=== PATIENT | male | born 1975 | race Caucasian/White ===

== ENCOUNTER 2022-06-05 14:25 | Outpatient (REF) | payer BC, SELFPAY ==
[2022-06-05 15:17] LABS: HCT 43.7 % (40.0-50.0); HGB 14.9 g/dL (13.5-17.5); MCH 29.3 pg (27.0-33.0); MCHC 34.1 % (32.0-36.0); MCV 86 fL (80-95); MPV 9.3 fL (8.0-11.0); Platelet Count 314 10^3/uL (130-400); RBC 5.08 10^6/uL (4.36-5.78); RDW 13.8 % (11.8-14.1); RDW-SD 43.3 fL; WBC 8.63 10^3/uL (4.4-10.8)
[2022-06-05 15:49] LABS: Anion Gap 9.5 mmol/L (3-11); BUN 15 mg/dL (7-18); CO2 25.5 mmol/L (21.0-32.0); CREATININE 0.8 mg/dL (0.70-1.30); Calcium 9.4 mg/dL (8.5-10.1); Calculated LDL 123 mg/dL (<100); Chloride 105 mmol/L (98-107); Cholesterol 209 mg/dL (<200); Estimated GFR 110.53 (mL/min/1.73m2); Glucose 103 mg/dL (74-106); HDL Cholesterol 54 mg/dL (40-60); Potassium 4.4 mmol/L (3.5-5.1); Sodium 140 mmol/L (136-145); Triglyceride 161 mg/dL (<150)
== END 2022-06-05 14:26 | disposition home or self-care (01) ==
LOC: NCHCN 14:25
PROVIDERS: PCP Family Medicine; Visit Provider Family Medicine
DX: E78.5 Hyperlipidemia, unspecified (principal); I25.10 Atherosclerotic heart disease of native coronary artery without angina pectoris; I10 Essential (primary) hypertension
CPT/HCPCS: 80048; 80061; 85027

== ENCOUNTER 2022-12-06 12:53 | Outpatient (REF) | payer BC, SELFPAY ==
[2022-12-06 17:48] LABS: Calculated LDL 59 mg/dL (<100); Cholesterol 154 mg/dL (<200); HDL Cholesterol 61 mg/dL (40-60); Triglyceride 174 mg/dL (<150)
== END 2022-12-06 12:54 | disposition home or self-care (01) ==
LOC: NCHCN 12:53
PROVIDERS: PCP Family Medicine; Visit Provider Family Medicine
DX: E78.5 Hyperlipidemia, unspecified (principal)
CPT/HCPCS: 80061

== ENCOUNTER 2023-06-15 16:21 | Outpatient (REF) | payer BC, SELFPAY ==
[2023-06-15 21:52] LABS: ALT 37 U/L (16-63); AST 25 U/L (15-37); Albumin 4.1 g/dL (3.4-5.0); Alkaline Phosphatase 68 U/L (46-116); Anion Gap 9.5 mmol/L (3-11); BUN 9 mg/dL (7-18); Bilirubin, Total 0.5 mg/dL (0.2-1.0); CO2 26.5 mmol/L (21.0-32.0); CREATININE 0.9 mg/dL (0.70-1.30); Calcium 9.5 mg/dL (8.5-10.1); Chloride 101 mmol/L (98-107); Estimated GFR 106.01 (mL/min/1.73m2); Glucose 92 mg/dL (74-106); Potassium 4.2 mmol/L (3.5-5.1); Sodium 137 mmol/L (136-145); Total Protein 7.1 g/dL (6.4-8.2)
== END 2023-06-15 16:22 | disposition home or self-care (01) ==
LOC: NCHCN 16:21
PROVIDERS: PCP Family Medicine; Referring Provider Family Medicine; Visit Provider Family Medicine
DX: E78.5 Hyperlipidemia, unspecified (principal)
CPT/HCPCS: 80053

== ENCOUNTER 2025-02-11 10:19 | Emergency (ER) | payer BC, SELFPAY ==
--- NOTE | 2025-02-11 10:15 | RT.EKG_ITS ---
APPROVED REPORT Exam: Resting ECG Reason for Exam: chest pain Patient Location: E HR:113 bpm ECG Measurements Heart Rate 113 AXIS IN 161 P 36 QRSd 79 QRS 58 QT 319 T 22 QTc 439 Conclusion Sinus tachycardia...rate> [address] elevation, inferior leads...ST >0.06mV, II III aVF No Occlusion CO
--- NOTE | 2025-02-11 10:30 | DI.RAD_ITS ---
Exam(s) XR CHEST 2V PA LATERAL EXAM: XR CHEST 2V PA LATERAL CLINICAL HISTORY: Chest pain. TECHNIQUE: 2D digital imaging was performed. COMPARISON: No exams were available for comparison FINDINGS: 2 views: Heart size is normal. The mediastinum is not widened. Mild increased markings are noted in the lower left lung field. There is also a 1 cm density behind the right-side of the heart possibly right lower lobe nodule. There are no pleural effusions. IMPRESSION: As above. Recommend follow-up CT scan. DATA REPOSITORY: RADIATION DOSE DELIVERED:
[2025-02-11 10:31] VITALS: BP 129/93; PULSE 120; RESP 22; TEMP 36.7; O2SAT 96
--- NOTE | 2025-02-11 11:05 | W.ED.GENAD ---
Discharge Plan Disposition Patient Disposition: Home Condition: Good Discharge Details Clinical Impression: Chest pain, Neck muscle strain Primary Care Provider: Hansa Mahoney ED Provider: Adilene Ku Home Meds and New Rx's Prescriptions: Continued rosuvastatin 40 mg tablet 40 mg PO DAILY nitroglycerin [Nitrostat] 0.4 mg tablet, sublingual 0.4 mg sublingual Q5M PRN Rx Instructions: do not exceed 3 doses per episode metoprolol succinate 25 mg tablet extended release 24 hr 25 mg PO DAILY ezetimibe 10 mg tablet 10 mg PO DAILY aspirin 81 mg tablet,delayed release (DR/EC) 81 mg PO DAILY varenicline tartrate 0.5 mg tablet 0.5 mg PO DIRECTED Rx Instructions: take 1 tablet by mouth daily on days 1-3; then 1 tablet twice daily (morning and evening) on days 4-7 isosorbide mononitrate 30 mg tablet extended release 24 hr 15 mg PO DAILY lisinopril 5 mg tablet 5 mg PO DAILY Discharge Instructions Instructions: Chest Pain (DC) Additional Instructions: As we discussed, your labs and imaging are very reassuring here today. No evidence that you are having a heart attack today. While you are medical history is concerning for a cardiac issue, the description of your symptoms and when things seem to get worse is actually quite reassuring and is more likely to be muscular pain. Alternatively, you may be developing a cold or something that causes some bodyaches so please continue to monitor for symptoms. You may continue with Tylenol and ibuprofen as needed for discomfort. Please continue with your other medications as previously prescribed. Please follow-up with your primary care provider in 1 to 2 weeks for reevaluation. You may discuss with them the need for outpatient stress test if needed. Referrals: Hansa Mahoney MD [Primary Care Provider, Medicine] [facility] Date/Time Provider Initiated Documentation: 02/11/25 10:42. Limitations to Documentation: no limitations. Information obtained by: patient, family, RN/MD (contacted by PCP prior to arrival) and RN notes reviewed. History of Present Illness 50 year old M presents to the emergency department with the chief complaint of chest pain, described as mild, Quality is described as aching, and is localized to the chest. Patient started experiencing this hour(s) and it has been constant. Movement improves symptom(s), Immoblization worsens symptoms . Patient notes no other symptoms.. Patient did receive the following treatments prior to arrival, none Related Data Home Medications Medication Instructions Recorded Confirmed aspirin 81 mg tablet,delayed 81 mg PO DAILY 08/11/22 release ezetimibe 10 mg tablet 10 mg PO DAILY 08/11/22 isosorbide mononitrate 30 mg 15 mg PO DAILY 08/11/22 tablet,extended release 24 hr lisinopril 5 mg tablet 5 mg PO DAILY 08/11/22 metoprolol succinate 25 mg 25 mg PO DAILY 08/11/22 tablet,extended release 24 hr nitroglycerin 0.4 mg sublingual 0.4 mg sublingual Q5M PRN 08/11/22 tablet (Nitrostat) rosuvastatin 40 mg tablet 40 mg PO DAILY 08/11/22 varenicline tartrate 0.5 mg tablet 0.5 mg PO DIRECTED 08/11/22 Allergies Allergy/AdvReac Type Severity Reaction Status Date / Time No Known Allergies Allergy Verified 08/11/22 13:51 General Stated Complaint: Chest Pain CAMERON: 3 Review of Systems Constitutional Constitutional: Reports as per HPI, Denies chills, Denies fever(s), Denies lethargy and Denies poor appetite Eyes Eyes: Denies change in vision Cardiovascular Cardiovascular: Reports as per HPI, Denies dyspnea and Denies dyspnea on exertion Respiratory Respiratory: Reports as per HPI, Denies chest congestion, Denies cough, Denies pain on inspiration, Denies pain with cough, Denies dyspnea and Denies dyspnea on exertion Gastrointestinal Gastrointestinal: Reports as per HPI, Denies abdominal pain, Denies diarrhea, Denies nausea and Denies vomiting Genitourinary Genitourinary: Denies system reviewed and no additional complaints, except as documented (denies change in urinary habits) Musculoskeletal Musculoskeletal: Reports as per HPI and Denies back pain Integumentary/Breasts Skin/Breast: Reports as per HPI and Denies rash Neurologic Neurologic: Reports as per HPI Exam Const General: cooperative, healthy appearing, comfortable, no acute distress and well developed Nutritional Appearance: average body habitus and well nourished Orientation: alert, awake and oriented x3 Neck Neck: normal visual inspection, full ROM, no lymphadenopathy, no meningeal signs and tender (with extension) Chest Chest: normal inspection of the chest, normal palpation of entire chest wall and no crepitus Resp Effort & Inspection: normal respiratory effort, able to speak in complete sentences and no respiratory distress Auscultation: clear to auscultation bilaterally, no rales, no rhonchi and no wheezes Cardio Rate: regular rate Rhythm: regular rhythm Heart Sounds: S1 normal and S2 normal Skin General skin exam: no rashes or lesions noted Trauma: no lacerations or abrasions Neuro General: patient alert, patient awake and patient oriented x3 Cognition: normal cognition Speech: speech normal Gait: normal gait Extrem General: normal to inspection, capillary refill normal, no pedal edema, no calf tenderness and normal gait Course Vital Signs Vital signs: Vital Signs Temperature 36.7 C 02/11/25 10:31 Pulse 120 H 02/11/25 10:31 Respiratory Rate 22 02/11/25 10:31 Blood Pressure 129/93 H 02/11/25 10:31 Pulse Oximetry 96 02/11/25 10:31 Temperature 36.7 C 02/11/25 10:31 Temperature Source Tympanic 02/11/25 10:31 Pulse 120 H 02/11/25 10:31 Respiratory Rate 22 02/11/25 10:31 Respiratory Effort Normal, Non-Labored 02/11/25 10:59 Respiratory Depth Normal 02/11/25 10:59 Respiratory Pattern Normal 02/11/25 10:59 Blood Pressure 129/93 H 02/11/25 10:31 Blood Pressure Position Sitting 02/11/25 10:31 Pulse Oximetry 96 02/11/25 10:31 Oxygen Delivery Method Room Air 02/11/25 10:31 Oxygen Flow Rate 0 02/11/25 10:31 Pain Level 2 02/11/25 10:31 Medical Decision Making Patient is a pleasant 50-year-old gentleman with past medical history of [place], underwent 3 stent placement 2020, hypercholesterolemia, hypertension, hyperlipidemia, psoriasis, presented with chief complaint of chest pressure. He reports that he woke with neck pain around 1 AM. Feels that he slept funny secondary to new pillow situation. Reports that initially, it was primarily just the neck but the pain has began to go more into the chest as well. Reports that the chest discomfort improves with motion. Is more noticeable when he is at rest. Describes having a cough in the morning but states that this is not new. Just recently began Chantix to help with smoking cessation. Denies any fevers or chills. Denies any current shortness of breath but states that when the pain was maximal this morning he felt like when he was taking a deep breath and he had increase in his discomfort. No long times of being sedentary. Has been taking his aspirin as prescribed. Denies any calf pain or swelling. On exam, patient appears nontoxic. He has 2+ distal pulses in all extremities. He has no lower extremity edema. No calf pain. Lungs are clear in all casarez. Aside from his tachycardia, heart rate currently 120, normal cardiac exam. Patient has good range of motion of the neck but he does have increased discomfort along the sternocleidomastoid when patient extends his neck upwards which does radiate down into the chest. While the patient's history certainly concerning for ACS, his current story is more musculoskeletal in nature, particularly as this seems to be worse with movements. Pain was exacerbated with the patient looking upward but no pain with flexion of the neck or rotational movements. He has no pain with the neck on palpation, no midline tenderness. Has not had any recent trauma. Given his history, I do feel that further evaluation for ACS is appropriate. Will also obtain x-ray to evaluate for any pneumonia given the increasing cough. Patient does not drink much water and with the reported muscle spasm as well as the continued discomfort, did consider dehydration as the contributing factor. Will augment his baby aspirin he takes daily to get full dose. Will give 1 L of fluids and continue to monitor. Initial EKG was reviewed by Dr. Carter with no evidence to suggest STEMI at this time. Labs reviewed. Patient has a leukocytosis of 11.5. Is not anemic. CMP without significant abnormality. Troponin is normal x 2 both at 7 and 8. Third troponin is not indicated at this time. He has not continued to have any significant discomfort. Chest x-ray is reviewed by radiologist and there is mild markings noted on the left lower lung field and a 1 cm density behind the right side of the heart. Recommends CT follow-up. I discussed this recommendation with the patient he is agreeable to having a CT today. Patient does have a long history of smoking and is at high risk for lung cance. CT was reviewed by radiologist, no pulmonary nodules. Nonspecific ground glass infiltrate in the lateral aspect of the left upper lobe suggestive of atelectasis or possible infection. I discussed this with the patient. He is he has not had a change in his cough. He has not had any fevers or chills, less likely to be pneumonia. More likely to be atelectasis particularly as he has been preferring to lay flat and has had some fairly shallow breathing. Primary concern at this point is for musculoskeletal discomfort associated with patient sleeping position based on his initial presentation and history. Again, the pain seems to be exacerbated by specific movements, particularly of the neck. Pain is alleviated with walking which should classically be exacerbated by that if it was truly ACS. I did encourage close follow-up with primary care, particularly given his cardiac history. I did advise that they may want to pursue a stress test but did not see indication to admit the patient for stress test today. Encouraged supportive care. Return precautions were discussed. All of his questions and concerns were addressed and he is in agreement this plan. Dictation completed using [employer] dictation software. Please excuse any errors or clerk telegraph service anomalies that may remain. PFSH All Active Problems (Updated 02/11/25 @ 14:56 by CHRISTINA Peters) Neck muscle strain (Acute) Chest pain (Acute) Angiokeratoma (Acute) Tobacco use disorder (Acute) Medical History (Updated 02/11/25 @ 14:56 by CHRISTINA Peters) CAD (coronary artery disease) Essential hypertension Hyperlipidemia Psoriasis Familial hypercholesterolemia Acute ST segment elevation myocardial infarction (~08/2020) 3 stents placed Social History Smoking/Tobacco Use Status: Current every day Tobacco Type: cigarettes Smoking risk assessment performed?: Yes Alcohol Intake: current Alcohol Intake frequency: 0-2 drinks per day Alcohol type: beer
[2025-02-11 11:06] LABS: Abs Immature Grans 0.04 10^3/uL (0.0-0.06); HCT 48.0 % (40.0-50.0); HGB 16.4 g/dL (13.5-17.5); Immature Grans % 0.3 %; MCH 29.4 pg (27.0-33.0); MCHC 34.2 % (32.0-36.0); MCV 86 fL (80-95); MPV 8.9 fL (8.0-11.0); Platelet Count 282 10^3/uL (130-400); RBC 5.58 10^6/uL (4.36-5.78); RDW 13.3 % (11.8-14.1); RDW-SD 41.8 fL; WBC 11.57 10^3/uL (4.4-10.8)
[2025-02-11] MEDS: Aspirin 81 MG CHEW 243 MG CH (11:14)
[2025-02-11] MEDS: Lactated Ringers 1,000 ML 1000 ML IV (11:15)
[2025-02-11 12:06] LABS: ALT 59 U/L (16-63); AST 27 U/L (15-37); Albumin 3.8 g/dL (3.4-5.0); Alkaline Phosphatase 70 U/L (46-116); Anion Gap 9.2 mmol/L (3-11); BUN 8 mg/dL (7-18); Bilirubin, Total 0.7 mg/dL (0.2-1.0); CO2 26.8 mmol/L (21.0-32.0); Calcium 9.4 mg/dL (8.5-10.1); Chloride 102 mmol/L (98-107); Glucose 115 mg/dL (74-106); Magnesium 1.9 mg/dL (1.8-2.4); Potassium 4.3 mmol/L (3.5-5.1); Sodium 138 mmol/L (136-145); Total Protein 7.0 g/dL (6.4-8.2); Troponin I 7 ng/L (<or=76)
[2025-02-11 12:35] LABS: Troponin I 8 ng/L (<or=76)
[2025-02-11 13:26] VITALS: BP 121/83; PULSE 92; RESP 18; O2SAT 97
[2025-02-11] MEDS: Omnipaque 350 MG/ML 100 ML BTL IJ (13:54)
[2025-02-11] MEDS: Normal Saline Flush 10 ML SYR IVP (13:54)
[2025-02-11] MEDS: Normal Saline - Diluent 50 ML VIAL IJ (13:54)
--- NOTE | 2025-02-11 14:02 | DI.CT_ITS ---
Exam(s) CT CHEST W EXAM: CT CHEST W CLINICAL HISTORY: f/u nodule CXR TECHNIQUE: Imaging Protocol: Axial computed tomography images with coronal and sagittal reformatted images were created and reviewed. Computer aided detection (CAD) was utilized. CONTRAST MATERIAL: Intravenous: Omnipaque 350Contrast volume:70 mL. COMPARISON: CR XR CHEST 2V PA LATERAL from 02/11/2025 FINDINGS: Tracheobronchial tree: Patent where visualized. No evidence of bronchiectasis. Pulmonary parenchyma: No consolidation or dominant measurable mass. There are no pulmonary nodules. Dependent atelectasis is seen in the lung bases there is a small peripheral ground-glass infiltrate in the left upper lobe. Mediastinum and Maribeth: No dominant adenopathy or fluid collection. The esophagus is unremarkable. Thyroid gland: Unremarkable. Pleura: No effusion or pneumothorax. Heart: The heart is not dilated. Moderate coronary artery calcification is present. No pericardial effusion. Aorta: Thoracic aorta non-dilated. Mild atherosclerotic calcification is present. Pulmonary arteries: No pulmonary emboli are identified. Upper abdomen: Unremarkable. Lymph nodes: Within normal limits. Bones: Within normal limits for the patient's age. Soft tissues: Unremarkable. IMPRESSION: 1. There are no pulmonary nodules. 2. Nonspecific ground-glass infiltrate in the lateral aspect of the left upper lobe. Atelectasis or possible infection. Please correlate clinically. RADIATION DOSE DELIVERED: 224.53mGy.cm Total DLP DATA REPOSITORY: All CT scans at this facility are submitted to the National Radiology Data Registry (NRDR) Dose Index Registry (DIR) with the [employer] [place] (A[employer]). RADIATION OPTIMIZATION: All CT scans at this facility use at least one of these dose optimization techniques: automated exposure control; mA and/or kV adjustment per patient size (includes targeted exams where dose is matched to clinical indication); or iterative reconstruction.
[2025-02-11 15:06] VITALS: BP 132/60; PULSE 88; RESP 20; O2SAT 98
== END 2025-02-11 15:15 | disposition home or self-care (01) ==
PROVIDERS: Emergency Provider Physician Assistant; PCP Family Medicine
DX: R07.9 Chest pain, unspecified (principal); S16.1XXA Strain of muscle, fascia and tendon at neck level, initial encounter
CPT/HCPCS: 99284; 99285; 80053; 93005; 96360; 71046; 71260; 83735; 84484; 85025; 93010; J3490